=== PATIENT | male | born 1945 | race Caucasian/White ===

== ENCOUNTER 2017-11-20 09:33 | Day surgery (SDC) | payer MEDICARE, BC ==
[2017-11-20] MEDS ORDERED: MIDAZOLAM HCL 2MG/2ML VIAL IV ONE (09:34)
[2017-11-20] MEDS ORDERED: LIDOCAINE 2% MDV (20MG/ML) 20ML VIAL IV ONE (09:34)
[2017-11-20] MEDS ORDERED: PROPOFOL 10 MG/ML VIAL IV ONE ×2 (09:34)
[2017-11-20] MEDS ORDERED: FENTANYL PF 100MCG/2ML VIAL IV ONE ×2 (09:34)
--- NOTE | 2017-11-20 13:40 | Operative Note ---
DATE OF SURGERY: 11/20/2017 OPERATION: 1. ESOPHAGOGASTRODUODENOSCOPY with biopsy. 2. COLONOSCOPY. PREOPERATIVE DIAGNOSIS: History of Ogden's and history of colon polyps. POSTOPERATIVE DIAGNOSES: 1. Status post Vickey fundoplication. 2. Ogden's esophagus. 3. Antral gastritis. 4. Sigmoid diverticulosis. 5. Internal hemorrhoids. PROCEDURE: After informed consent was obtained from the patient, he was placed in the left lateral decubitus position in the endoscopy suite, sedated and monitored by the department of anesthesia. A well-lubricated [id number] gastroscope was placed in the posterior oropharynx and under direct visualization passed to the proximal esophagus. The endoscope was advanced through the proximal, mid, and distal esophagus. The GE junction demonstrated proximal migration of the columnar border which was irregular as well consistent with short-segment Ogden's. The remainder of the esophagus was unremarkable. The gastric body and antrum were inspected revealing patches of adherent heme in the antrum consistent with gastritis. No ulcers or mass lesions were seen. The pylorus, duodenal bulb, and sweep were unremarkable. J-turn views of the proximal stomach were unremarkable other than changes consistent with a prior Vickey fundoplication. The endoscope was then straightened. Distal esophageal biopsies were obtained for dysplasia assessment. The endoscope was then retracted through the course of the esophagus. No new findings noted. Digital rectal exam was unremarkable. A well-lubricated [id number] colonoscope was inserted into the rectum and advanced to the cecum. Preparation quality was good. The cecum, ileocecal valve, appendiceal orifice, ascending colon, transverse colon, and descending colon were unremarkable. No polyps, mass lesions, or inflammation was seen. The sigmoid colon demonstrated scattered diverticula but no polyps or mass lesions were seen. The rectum was unremarkable in forward views. J-turn did reveal internal hemorrhoids. The endoscope was straightened, the rectal ampulla deflated, and the endoscope was removed. RECOMMENDATIONS: The patient should resume his medications and diet. I would recommend a repeat colonoscopy in 5 years and repeat upper endoscopy in 3 years. As always, thank you for allowing me to participate in the healthcare of your patients. CC: MD LEVI Monge
== END 2017-11-20 11:00 | disposition home or self-care (01) ==
LOC: HOP 09:33
PROVIDERS: ATTEND Internal Medicine Gastroenterology
DX: Z12.11 Encounter for screening for malignant neoplasm of colon (principal); Z86.010 Personal history of colon polyps; Z87.19 Personal history of other diseases of the digestive system; Z98.890 Other specified postprocedural states; K22.70 Barrett's esophagus without dysplasia; K29.70 Gastritis, unspecified, without bleeding; K57.30 Diverticulosis of large intestine without perforation or abscess without bleeding; K64.8 Other hemorrhoids; E11.9 Type 2 diabetes mellitus without complications; Z79.4 Long term (current) use of insulin; I10 Essential (primary) hypertension; E78.00 Pure hypercholesterolemia, unspecified; G62.9 Polyneuropathy, unspecified
CPT/HCPCS: 45378; 43235; 00813; 88305; 88313; J3010

== ENCOUNTER 2018-06-30 18:03 | Emergency (ER) | payer MEDICARE, BC ==
[2018-06-30] MEDS ORDERED: PROPARACAINE HCL OPTH 15ML BTL OPTH ONE (18:06)
--- NOTE | 2018-06-30 18:31 | Emergency Department Record ---
History of Present Illness - General Chief complaint: Eye Problem Stated complaint: METAL IN RIGHT EYE Time Seen by Provider: 06/30/18 18:19 Source: Patient Mode of Arrival: Ambulatory Limitations: No limitations - History of Present Illness Initial comments: 72 yo male presents to ED for evaluation of a eye foreign body sensation that occurred approximately 3 hours ago while grinding metal at home. Patient reports that he felt the object strike his eye, attempted to remove the FB with a magnet as well as irrigation without success. Patient reports mild blurred vision and FB sensation. Patient does report previous symptoms related to FBs while working for [employer]. Patient also reports that he sees Dr. Ruano in [place] for his eye care needs. chief complaint: Eye pain, Foreign body Onset/Timin -: Hour(s) Onset Description: Sudden Location: Right eye Place: Home If Injury: None Eye Symptoms: Blurry vision, Pain Severity scale (1-10): 3 Consistency: Constant Associated Symptoms: None Treatments Prior to Arrival: Irrigated eye - Related Data Visual acuity (R) = 20/: 30 With correction: No ("blind" L) Patient Tetanus UTD (within 5 yrs): Yes Previous Rx's Medication Instructions Recorded Gentamicin Sulfate 1 drop RIGHT EYE Q4H #5 ml 06/30/18 Allergies Allergy/AdvReac Type Severity Reaction Status Date / Time oxytetracycline Allergy ANAPHYLAXIS Verified 06/30/18 18:06 [From Terramycin] propoxyphene HCl AdvReac VOMITING Verified 07/10/16 17:11 [From Darvon] Travel Screening - Travel/Exposure Within Last 30 Days Have you traveled within the last 30 days?: No - Travel Symptoms Symptom Screening: None Review of Systems Constitutional: Denies: Chills, Fever, Malaise, Night sweats Eyes: Reports: Eye pain, Photophobia. Denies: Eye discharge ENT: Denies: Congestion, Dental pain Respiratory: Denies: Cough, Dyspnea Cardiovascular: Denies: Chest pain, Dyspnea on exertion, Palpitations Endocrine: Denies: Fatigue, Heat or cold intolerance Gastrointestinal: Denies: Abdominal pain, Nausea, Vomiting Genitourinary: Denies: Incontinence, Retention Musculoskeletal: Denies: Arthralgia, Back pain Skin: Denies: Bruising, Change in color Neurological: Denies: Abnormal gait, Confusion, Headache Psychiatric: Denies: Anxiety, Auditory hallucinations Hematological/Lymphatic: Denies: Anemia, Blood Clots Past Medical History - SOCIAL HISTORY Smoking Status: Former smoker - RESPIRATORY Hx Respiratory Disorders: Yes Hx Sleep Apnea: Yes Hx of CPAP: No - CARDIOVASCULAR Hx Cardio Disorders: Yes Hx Cardiac Cath: Yes Hx Hypertension: Yes Comment:: high cholesterol - NEURO Hx Neuro Disorders: Yes Hx of Migraines: Yes Hx Neuropathy: Yes Comment:: L eye- " blindness" - GI Hx GI Disorders: Yes Hx Reflux: Yes (Ogden's Esophagus) Hx of Polyps: Yes - Hx Genitourinary Disorders: Yes Hx Kidney Stones: Yes (hx) Hx Prostate Problems: Yes (BPH) - ENDOCRINE Hx Endocrine Disorders: Yes Hx Diabetes: Yes Hx Thyroid Disease: Yes (HypoThyroid) - MUSCULOSKELETAL Hx Musculoskeletal Disorders: Yes Hx Arthritis: Yes Comment:: spinal stenosis - PSYCH Hx Psych Problems: Yes Hx Anxiety: Yes Hx Depression: Yes - HEMATOLOGY/ONCOLOGY Hx Hematology/Oncology Disorders: Yes Hx Cancer: Yes (melanoma) Family Medical History Any Significant Family History?: Yes *Diabetes Comment: Aunts Hx Heart Disease: Mother Hx Kidney Disease: Mother Hx Resp Disorders: Father Physical Exam - General General Appearance: Alert, Oriented x3, Cooperative, Mild distress Limitations: No limitations - Head Head exam: Atraumatic, Normocephalic, Normal inspection Head exam detail: negative: Abrasion, Contusion, Lawler's sign, General tenderness, Hematoma, Laceration - Eye Eye exam: Other (Punctate FB and associated abrasion at the 4 o'clock position overlying the medial iris, no FB on lid eversion, no other abrasions noted, Laura's sign negative.). negative: Conjunctival injection, Periorbital swelling, Periorbital tenderness, Scleral icterus With correction: No ("blind" L) - ENT Ear exam: negative: Auricular hematoma, Auricular trauma Nasal Exam: negative: Active bleeding, Discharge, Dried blood, Foreign body Mouth exam: negative: Drooling, Laceration, Muffled voice, Tongue elevation - Neck Neck exam: Normal inspection. negative: Meningismus, Tenderness - Respiratory Respiratory exam: Normal lung sounds bilaterally. negative: Respiratory distress, Rhonchi, Stridor, Wheezes - Cardiovascular Cardiovascular Exam: Regular rate, Normal rhythm, Normal heart sounds - GI/Abdominal GI/Abdominal exam: Soft. negative: Rebound, Tenderness - Rectal Rectal exam: Deferred - exam: Deferred - Extremities Extremities exam: Normal inspection. negative: Pedal edema, Tenderness - Back Back exam: Denies: CVA tenderness (R), CVA tenderness (L) - Neurological Neurological exam: Alert, Normal gait, Oriented X3 - Psychiatric Psychiatric exam: Normal affect, Normal mood - Skin Skin exam: Normal color. negative: Abrasion Type of lesion: negative: abrasion Course Vital Signs 06/30/18 18:06 Temperature 97.4 F L Pulse Rate 54 L Respiratory 16 Rate Blood Pressure 118/97 Pulse Ox 98 - Reevaluation(s) Reevaluation #1: 06/30/18 18:35 Patient was seen and examined. Following topical anesthesia to the eye, small FB was removed at the 4 o'clock position with a moist q-tip without complications. Small abrasion was present without FB on repeat examination following removal. VA reviewed and is 20/30 in danelle affected eye. No other FB is present with eversion of the upper/lower lid. Will initiate treatment with Gentamicin and instructions to follow-up with Dr. Ruano in 1-2 days as directed. Patient verbalizes understanding of all instructions and appears stable for discharge at this time. Disposition Disposition: Discharge Clinical Impression: Corneal FB (foreign body) Qualifiers: Encounter type: initial encounter Laterality: right Qualified Code(s): T15.01XA - Foreign body in cornea, right eye, initial encounter Disposition: Home, Self-Care Condition: (2) Stable Instructions: Eye Foreign Body (ED) Additional Instructions: Return to ED if your symptoms worsen or if you have any concerns. Follow-up with Dr. Ruano in 1-2 days as directed. Gentamicin as directed. Prescriptions: Gentamicin Sulfate 1 drop RIGHT EYE Q4H #5 ml Referrals: LETICIA RUANO [MEDICAL DOCTOR] - Forms: Patient Portal Access Time of Disposition: 18:31 Quality - Quality Measures Quality Measures: N/A - Blood Pressure Screening Does Patient Have Any of the Following: Active Dx of HTN Blood Pressure Classification: Hypertensive Reading Systolic Measurement: 118 Diastolic Measurement: 97 Screening for High Blood Pressure: Patient Exclusion, Hx of HTN [[id number]]
== END 2018-06-30 18:36 | disposition home or self-care (01) ==
LOC: ER 18:03
DX: T15.01XA Foreign body in cornea, right eye, initial encounter (principal); W22.8XXA Striking against or struck by other objects, initial encounter; Y93.89 Activity, other specified; Y92.009 Unspecified place in unspecified non-institutional (private) residence as the place of occurrence of the external cause; E11.9 Type 2 diabetes mellitus without complications; Z87.891 Personal history of nicotine dependence
CPT/HCPCS: 65220; 99283